=== PATIENT | female | born 1950 | race Caucasian/White ===

== ENCOUNTER → 2017-08-05 | Outpatient (CLI) | payer MEDICARE, OTHER ==
[~2017-08-05] MED LIST: ASCO10004 PO; CALC-112 PO; ERGO500017 PO; FLUO20CA19 PO; LACT1CAP24 PO; LEVO88TA4 PO; MELO15TA6 PO; MULT-91 PO; OMEP20TA62 PO; RANI300T PO; TURM1POW2 PO; VITA1TAB3 PO; ZINC50CA PO
[2017-08-05 11:39] LABS: BASOPHILS # (AUTO) 0.05 x10^3/uL (0-0.1); BASOPHILS % (AUTO) 1 % (0-1); EOSINOPHILS # (AUTO) 0.17 x10^3/uL (0-0.4); EOSINOPHILS % (AUTO) 2 % (1-7); LYMPHOCYTES # (AUTO) 2.63 x10^3/uL (1-3.4); LYMPHOCYTES % (AUTO) 30 % (22-44); MD NO; MEAN CORPUSCULAR HEMOGLOBIN 29.6 pg (27.0-34.8); MEAN CORPUSCULAR HGB CONC 34.1 g/dL (32.4-35.8); MEAN CORPUSCULAR VOLUME 86.9 fL (80-100); MEAN PLATELET VOLUME 9.4 fL (7.4-10.4); MONOCYTES # (AUTO) 0.86 x10^3/uL (0.2-0.8); MONOCYTES % (AUTO) 10 % (2-9); NEUTROPHILS # (AUTO) 4.99 x10^3/uL (1.8-6.8); NEUTROPHILS % (AUTO) 57 % (42-75); PLATELET COUNT 215 x10^3/uL (130-400); RED BLOOD COUNT 5.34 x10^6/uL (3.82-5.3); RED CELL DISTRIBUTION WIDTH 13.3 % (9.6-15.2)
[2017-08-05 11:40] LABS: MICROSCOPIC NOT IND
[2017-08-05 11:42] LABS: CULTURE INDICATED? NO
[2017-08-05 11:46] LABS: INTERNATIONAL NORMALIZED RATIO 0.98 (0.93-1.1); PROTHROMBIN TIME 10.2 Seconds (9.6-11.5)
[2017-08-05 11:50] LABS: ANION GAP 8 mmol/L (5-15); CHLORIDE 106 mmol/L (98-107); CREATININE 0.77 mg/dL (0.55-1.02)
[2017-08-05 12:16] LABS: HEMOGLOBIN A1C 5.6 % (4.2-6.3)
== END | disposition home or self-care (01) ==
LOC: STAR 10:03
PROVIDERS: ATTEND Orthopaedic Surgery
DX: Z01.818 Encounter for other preprocedural examination (principal); Z79.01 Long term (current) use of anticoagulants; Z79.899 Other long term (current) drug therapy
CPT/HCPCS: 36415; 80048; 81003; 83036; 85025; 85610; 85730; 87081; 87806; G0475

== ENCOUNTER 2017-08-16 09:20 | Inpatient (IN) | payer MEDICARE, OTHER ==
[~2017-08-16] VITALS: Ht 157.5 cm; Wt 77.0 kg
[2017-08-16] MEDS ORDERED: ACETAMINOPHEN 500 MG TABLET PO ONE (10:01)
[2017-08-16] MEDS ORDERED: LACTATED RINGERS 1,000 ML IV SCH (10:01)
[2017-08-16] MEDS ORDERED: GABAPENTIN 300 MG CAPSULE PO ONE (10:01)
[2017-08-16] MEDS ORDERED: FENTANYL PF 250 MCG/5ML ONE (10:04)
[2017-08-16] MEDS ORDERED: MIDAZOLAM 1 MG/ML, 2ML ONE (10:04)
[2017-08-16] MEDS ORDERED: VANCOMYCIN PER PHARMACY MC ONE (10:17)
[2017-08-16 10:26] VITALS: BP 144/87
[2017-08-16] MEDS ORDERED: VANCOMYCIN 1,500 MG in SODIUM CHLORIDE 0.9% 250 ML IV ONE (10:30)
[2017-08-16] MEDS ORDERED: TRANEXAMIC ACID 100 MG/ML, 10ML ONE ×7 (11:01→12:08)
[2017-08-16] MEDS ORDERED: KETOROLAC 60 MG/2 ML ONE ×2 (11:01→12:07)
[2017-08-16] MEDS ORDERED: SODIUM CHLORIDE 0.9% 100 ML ONE (11:02)
[2017-08-16] MEDS ORDERED: ROPivacaine/PF 0.2%, 10 ML ONE ×2 (11:02→12:08)
[2017-08-16] MEDS ORDERED: EPINEPHRINE 1 MG/ML, 1ML ONE ×2 (11:02→12:08)
[2017-08-16] MEDS ORDERED: MAGNESIUM HYDROXIDE 8%, 30ML UDC PO PRN (11:30)
[2017-08-16] MEDS ORDERED: DIAZEPAM 5 MG TABLET PO PRN (11:30)
[2017-08-16] MEDS ORDERED: ONDANSETRON 2MG/ML, 2ML IV PRN (11:30)
[2017-08-16] MEDS ORDERED: morphine SULFATE 10 MG/ML, 1ML IV PRN (11:30)
[2017-08-16] MEDS ORDERED: ALUMINUM/MAG/SIMETHICONE 30 ML UDC PO PRN (11:30)
[2017-08-16] MEDS ORDERED: OXYcodone IR 5MG TABLET PO PRN (11:30)
[2017-08-16] MEDS ORDERED: SENNA/DOCUSATE TABLET PO PRN (11:30)
[2017-08-16] MEDS ORDERED: ACETAMINOPHEN 650 MG/20.3 ML UDC PO PRN (11:30)
[2017-08-16] MEDS ORDERED: TRANEXAMIC ACID 1,000 MG in SODIUM CHLORIDE 0.9% 100 ML IVPB ONE (11:30)
[2017-08-16] MEDS ORDERED: ONDANSETRON 4 MG TABLET PO PRN (11:30)
[2017-08-16] MEDS ORDERED: CEFAZOLIN 1,000 MG ONE (11:33)
[2017-08-16] MEDS ORDERED: SUCCINYLCHOLINE 20 MG/ML, 10ML ONE (11:33)
[2017-08-16] MEDS ORDERED: NEOSTIGMINE 1 MG/ML, 10ML ONE (11:33)
[2017-08-16] MEDS ORDERED: PROPOFOL 10 MG/ML, 20ML ONE (11:33)
[2017-08-16] MEDS ORDERED: ROCURONIUM 10MG/ML,5ML ONE (11:33)
[2017-08-16] MEDS ORDERED: DIPHENHYDRAMINE 50 MG/ML, 1ML ONE (11:33)
[2017-08-16] MEDS ORDERED: ONDANSETRON 2MG/ML, 2ML ONE ×2 (11:33→13:39)
[2017-08-16] MEDS ORDERED: DEXAMETHASONE 4 MG/ML, 1ML ONE (11:33)
[2017-08-16] MEDS ORDERED: GLYCOPYRROLATE 0.2MG/1ML, 5ML ONE (11:33)
[2017-08-16] MEDS ORDERED: hydrALAzine 20 MG/ML, 1ML IV PRN (12:00)
[2017-08-16] MEDS ORDERED: ONDANSETRON 2MG/ML, 2ML IVPush PRN (12:00)
[2017-08-16] MEDS ORDERED: METOCLOPRAMIDE 5 MG/ML, 2ML IV PRN (12:00)
[2017-08-16] MEDS ORDERED: LABETALOL 5MG/ML, 20ML IV PRN (12:00)
[2017-08-16] MEDS ORDERED: OXYcodone 5 MG/5 ML ORAL.SOL UDC PO PRN (12:00)
[2017-08-16] MEDS ORDERED: HYDROmorphone 1 MG/ML, 1ML IV PRN (12:00)
[2017-08-16] MEDS ORDERED: ACETAMINOPHEN 325 MG TABLET PO PRN (12:00)
[2017-08-16] MEDS ORDERED: ROPIvacaine/PF 0.5%, 30 ML ONE (12:34)
[2017-08-16 13:14] LABS: CELLS COUNTED 26
[2017-08-16] MEDS ORDERED: ACETAMINOPHEN 650 MG/20.3 ML UDC ONE (13:21)
[2017-08-16] MEDS ORDERED: OXYcodone 5 MG/5 ML ORAL.SOL UDC ONE (13:21)
[2017-08-16] MEDS ORDERED: FENTANYL PF 100 MCG/2ML ONE (13:21)
[2017-08-16] MEDS: FENTANYL PF 100 MCG/2ML IV PRN ×2 (13:26→13:45)
[2017-08-16 15:06] VITALS: BP 147/69
[2017-08-16] MEDS: ASPIRIN 81 MG TABLET EC PO SCH (17:29)
[2017-08-16] MEDS: D5%-0.45NACL+KCL 20MEQ 1,000 ML IV SCH (17:29)
[2017-08-16 18:58] VITALS: BP 138/60
[2017-08-16] MEDS: DOCUSATE 100 MG CAPSULE PO SCH (19:36)
[2017-08-16] MEDS ORDERED: FAMOTIDINE 40 MG TABLET PO SCH (21:00)
[2017-08-16] MEDS ORDERED: VANCOMYCIN PMX 1GM/200ML 200 ML IVPB SCH (23:00)
[2017-08-16 23:52] VITALS: BP 110/53
[2017-08-17] MEDS: D5%-0.45NACL+KCL 20MEQ 1,000 ML IV SCH (01:04)
[2017-08-17 03:35] VITALS: BP 105/60
[2017-08-17] MEDS ORDERED: LEVOTHYROXINE 88 MCG TABLET PO SCH (06:00)
[2017-08-17] MEDS ORDERED: DEXAMETHASONE 4 MG/ML, 1ML IVPush SCH (06:00)
[2017-08-17] MEDS: ASPIRIN 81 MG TABLET EC PO SCH (06:00)
[2017-08-17 06:51] VITALS: BP 90/46
[2017-08-17] MEDS ORDERED: OMEPRAZOLE 20 MG CAPSULE.DR PO SCH (07:30)
[2017-08-17] MEDS: DOCUSATE 100 MG CAPSULE PO SCH (07:50)
[2017-08-17] MEDS ORDERED: ASPI-621 PO (08:32)
[2017-08-17] MEDS ORDERED: DIAZ5TAB PO (08:32)
[2017-08-17] MEDS ORDERED: ONDA4TAB10 PO (08:33)
[2017-08-17] MEDS ORDERED: TRAM50TA2 PO (08:33)
[2017-08-17] MEDS ORDERED: OXYC5CAP2 PO (08:33)
[2017-08-17] MEDS ORDERED: MELO7.5T5 PO (08:33)
[2017-08-17] MEDS ORDERED: DOCU-131 PO (08:33)
[2017-08-17] MEDS ORDERED: FLUOXETINE HCL 20 MG CAPSULE PO SCH (09:00)
[2017-08-17 09:53] VITALS: BP 114/54
[2017-08-17] MEDS ORDERED: KETOROLAC 30 MG/1 ML IV SCH (11:30)
== END 2017-08-17 10:10 | disposition home or self-care (01) | DRG 470 ==
LOC: OUT 09:20 → ORIP 11:21 → EDSTATUS 11:30 → 4NOR 14:37
PROVIDERS: ADMIT Orthopaedic Surgery; ATTEND Orthopaedic Surgery
PROC: 0SRC069 Replacement of Right Knee Joint with Oxidized Zirconium on Polyethylene Synthetic Substitute, Cemented, Open Approach (ICD-10-PCS; principal; 2017-08-16 11:00)
DX: M17.11 Unilateral primary osteoarthritis, right knee (principal); K21.9 Gastro-esophageal reflux disease without esophagitis; M71.30 Other bursal cyst, unspecified site
CPT/HCPCS: 36415; 85014; 85018; 87070; 87075; 87205; 89051; 93005; C1713; J0171; J0690; J1100; J1885; J2250; J2405; J2704; J2710; J2795; J3010; J3370; J3490; C1776; J0330; J1200; J3480; J7050; J7120

== ENCOUNTER 2019-06-06 07:59 | Outpatient (CLI) | payer MEDICARE, OTHER ==
[~2019-06-06 07:59] MED LIST changes: +ASPI81TA45 PO; +DIAZ5TAB PO; +DOCU-131 PO; +MELO7.5T5 PO; +ONDA4TAB10 PO; +OXYC5CAP2 PO; +TRAM50TA2 PO
== END 2019-06-06 23:59 | disposition home or self-care (01) ==
LOC: CFH 07:59
PROVIDERS: ATTEND Internal Medicine Cardiovascular Disease
DX: I25.10 Atherosclerotic heart disease of native coronary artery without angina pectoris (principal)
CPT/HCPCS: 78452; 93017; A9502

== ENCOUNTER 2019-06-08 10:21 | Outpatient (CLI) | payer MEDICARE, OTHER | END 2019-06-08 23:59 | disposition home or self-care (01) | LOC: CFH 10:21 | PROVIDERS: ATTEND Internal Medicine Cardiovascular Disease | DX: I08.2 Rheumatic disorders of both aortic and tricuspid valves (principal); I25.10 Atherosclerotic heart disease of native coronary artery without angina pectoris | CPT/HCPCS: 93306 ==